=== PATIENT | female | born 1975 | race Caucasian/White ===

== ENCOUNTER → 2016-10-13 | Day surgery (SDC) | payer OTHER ==
[~2016-10-13] VITALS: Ht 170.2 cm; Wt 97.5 kg
[~2016-10-13] MED LIST: ACET1CAP18 PO; BUPIVACAINE HCL PF 0.5% 30 ML VIAL ONE; CEPH-460 PO; LACTATED RINGER'S 1000 ML INJ 1,000 ML ONE; LIDOCAINE HCL 2% 50 ML VIAL ONE; MIDAZOLAM HCL 2 MG/2 ML VIAL IV ONE; NEOMYCIN/POLYMYXIN 1 ML G.U. IRRIGANT TOPICAL ONE; NORC5TAB PO; PROPOFOL 200 MG/20 ML AMP IV ONE; SODIUM CHLORIDE 0.9% INJ 50 ML ONE; TYLE325T PO; ceFAZolin INJ 1,000 MG VIAL ONE
[2016-10-13 09:51] VITALS: BP 134/85; PULSE 66; RESP 20; TEMP 98.6; O2SAT 97
[2016-10-13 13:30] VITALS: BP 124/86; PULSE 80; RESP 16; TEMP 98.1; O2SAT 99
--- NOTE | 2016-10-13 13:44 | MP ---
cc: MILTON VILLANUEVA III, M.D. DATE OF SURGERY: 10/13/2016 PREOPERATIVE DIAGNOSIS Right volar wrist mass. POSTOPERATIVE DIAGNOSIS Right volar wrist mass. PROCEDURE Excisional biopsy, right volar wrist mass. SURGEON Milton Villanueva III, MD DETAILS OF PROCEDURE The patient was brought to the operating room and placed on the operating table. After the correct side and site of surgery were verified by members of each team in the room multiple times including the patient and myself, and after adequate preoperative markings and preoperative written consent were verified by everyone, and after an adequate preoperative timeout was performed to everyone's satisfaction, and after adequate IV sedation had been achieved, the right upper extremity was prepped and draped in traditional sterile surgical fashion. A 50/50 mixture of 2% plain lidocaine and 0.5% plain Marcaine was infiltrated in the skin and subcutaneous tissue and into the wrist joint. The limb was exsanguinated with an Timbo wrap. A transversely oriented incision within the skin flexion crease was made and carried down through skin and subcutaneous tissue. Blunt dissection was performed. The radial artery was identified and protected. A small cystic mass was identified and dissected free easily from surrounding tissue down to a stalk coming out from the wrist joint. It was amputated at its base and passed off the field in its entirety as a specimen. Curettage of the area to induce scar tissue and inflammation was performed in the usual manner. The radial artery was examined and found to be uncompromised. The axillary tourniquet was released after 12 minutes and the hand and all the fingers on the right became immediately soft, pink and warm with brisk capillary refill of less than two seconds. The radial artery became soft, full and pulsatile, and had no evidence of any bleeding or injury. The deep subcutaneous tissues were re-approximated using 4-0 Vicryl sutures and the skin edges re-approximated using running subcuticular 4-0 Monocryl brought out on both sides. The hand and arm were thoroughly cleansed and dried. Mastisol and Steri-Strips were applied over the wound. A bulky soft dressing was applied followed by circumferential Sof-Rol and a well-padded, well-molded short-arm volar wrist immobilizing splint was made in the usual fashion and held in place with an Timbo wrap. The patient was awakened from anesthesia and transported to the post-anesthesia care unit awake and in stable condition at the end of the case. Sponge, needle and instrument counts were correct at the end of the case as reported by the nurses in the room. MD PAYAM Nielsen III/MARYELLEN /1:19 PM /1:31 PM
== END | disposition home or self-care (01) ==
LOC: PHSDC 08:13
PROVIDERS: ATTEND Orthopaedic Surgery Hand Surgery
DX: M67.431 Ganglion, right wrist (principal); Z87.891 Personal history of nicotine dependence
CPT/HCPCS: 25111; 36415; 88304; J0690; J2250; J7120; 88305